=== PATIENT | male | born 1965 ===

== ENCOUNTER 2017-12-16 09:00 | Emergency (ER) | payer OTHER, SELFPAY | END 2017-12-16 10:30 | disposition home or self-care (01) | PROVIDERS: Emergency Provider Emergency Medicine; Family Provider Family Medicine; PCP Family Medicine; Visit Provider Emergency Medicine | DX: M25.511 Pain in right shoulder (principal); Z98.890 Other specified postprocedural states | CPT/HCPCS: 96372; 99283; J2270 ==

== ENCOUNTER 2019-06-20 13:46 | Day surgery (SDC) | payer OTHER, SELFPAY ==
[2019-06-20 15:46] VITALS: BP 123/87; PULSE 83; RESP 16; TEMP 36.1; O2SAT 99; BMI 31.8
--- NOTE | 2019-06-20 17:36 | P.HP_ITS ---
History of Present Illness History of Present Illness Date Patient Seen: 06/20/19 Time Patient Seen: 17:36 Chief complaint: [id number] SCREENING COLONOSCOPY Narrative: Patient presents for colorectal screening. They have never had any previous examination for such. On further history denies any recent gastrointestinal symptoms. No nausea, vomiting, abdominal pain, loss of appetite, unexplained weight loss, change in bowel habits, diarrhea, constipation, melena, hematochezia, or bright red blood per rectum. Patient History Family & Social History Social History: household members family Meds Home Medications and Allergies Home Medications Medication Instructions Recorded Confirmed Type allopurinol 300 mg PO QDAY #0 12/13/17 06/20/19 History epinephrine 0.3 mg IM PRN PRN #0 12/13/17 06/20/19 History hydrocortisone 1 rosario TOPICAL PRN PRN #0 12/13/17 06/20/19 History indomethacin 20 mg PO DAILY PRN #0 12/13/17 06/20/19 History zolpidem [Ambien] 10 mg PO HS #0 12/13/17 06/20/19 History hydromorphone [Dilaudid] 2 mg PO Q4HP PRN 06/20/19 History prazosin 3 mg PO QPM 06/20/19 06/20/19 History Allergies Allergy/AdvReac Type Severity Reaction Status Date / Time mussels [MUSSELS] Allergy Unknown POSS Unverified 12/13/17 12:03 ALLERGY, [employer]; HIVES Review of Systems Review of Systems ROS Unobtainable: All systems reviewed & are unremarkable except as noted in HPI and below Exam Vital Signs (past 8 hours): - 06/20/19 15:46 Temperature 97 F L Pulse Rate 83 Respiratory Rate 16 Blood Pressure 123/87 Pulse Oximetry 99 Oxygen Delivery Method Room Air Narrative Exam Narrative: General-no acute distress, well nourished HEENT-moist mucous membranes, no scleral icterus Neck-supple, no lymphadenopathy Chest- non labored respirations, clear to auscultation bilaterally Cardiac-regular rate no peripheral edema Abdomen-soft, nontender, non distended Extremities-warm, well perfused Neurological-alert and oriented, no focal deficits Assessment & Plan Assessment and plan (1) Screening for colon cancer: Current visit: Yes Status: Acute Assessment & Plan narrative: The patient requires colorectal screening and c olonoscopy is recommended. Technical details were discussed. Risks, benefits, alternatives explained. Risks including but not limited to myocardial infarction, aspiration, bleeding, pain, missed lesion, incomplete examination, need for further radiographic studies, colonic perforation, and need for major abdominal surgery were discussed. All questions were answered to their satisfaction, and they are in agreement with this plan.
[2019-06-20] MEDS: MIDAZOLAM 5 MG/5 ML VIAL IV ×2 (17:44→17:52)
[2019-06-20] MEDS: fentaNYL 250 MCG/5 ML INJ IV (17:49)
--- NOTE | 2019-06-20 18:04 | PM.OP.ENDO ---
Operative Date/Time/Diagnoses Date of procedure: 06/20/19 Time of procedure: 18:04 Pre-op diagnosis: Screening colonoscopy Post-op diagnosis: same Procedure & Clinicians Study performed: Colonoscopy Indications: 54-year-old male no previous colonoscopy presents for screening Surgeon: Konstantin Baumann Procedure Notes SCOAP/Timeout: Performed Procedure in detail: Patient placed in left lateral decubitus position. Time out was performed. Procedural sedation was administered with Versed and Fentanyl. A rectal exam demonstrated no external hemorrhoids no internal masses. Colonoscopy scope was placed into the rectum and advanced through the colon to the cecum. The ileocecal valve was identified. The scope was then slowly withdrawn examining colon thoroughly in all directions. The colonoscopy was notable for the following 1. grade 1 internal hemorrhoids 2. 3. Scope withdrawal time: 7 Sedation minutes: 18 Findings: internal hemorrhoids Impression: Normal colonoscopy Post-procedure Recommendations: Colonscopy in 10 years Disposition: same day surgery
[2019-06-20 18:07] VITALS: BP 131/82; PULSE 79; RESP 11; TEMP 36.2; O2SAT 95
[2019-06-20 18:12] VITALS: BP 107/76; PULSE 99; RESP 14; O2SAT 95
[2019-06-20 18:17] VITALS: BP 111/59; PULSE 100; RESP 17; TEMP 36.3; O2SAT 95
[2019-06-20 18:25] VITALS: BP 128/96; PULSE 95; RESP 15; TEMP 36.4; O2SAT 96
== END 2019-06-20 18:40 | disposition home or self-care (01) ==
PROVIDERS: Family Provider Family Medicine; PCP Family Medicine; Visit Provider Surgery
PROC: 0DJD8ZZ Inspection of Lower Intestinal Tract, Via Natural or Artificial Opening Endoscopic (ICD-10-PCS; CPT 45378; principal; 2019-06-20 15:15)
DX: Z12.11 Encounter for screening for malignant neoplasm of colon (principal); K64.0 First degree hemorrhoids
CPT/HCPCS: 45378; 99152; J2250; J3010